=== PATIENT | female | born 1970 | race Caucasian/White ===

== ENCOUNTER 2024-05-02 10:40 | Emergency (ER) | payer OTHER, MEDICAID, SELFPAY ==
--- NOTE | ~2024-05-02 | XR_ITS ---
EXAMINATION: XR chest ET placement DATE: 05/02/2024 10:55 INDICATION: Intubation. TECHNIQUE: A single frontal view of the chest was obtained. COMPARISON: None. FINDINGS: There are airspace opacities in all lung zones bilaterally with relative sparing of right l casey apex. No pleural effusion or pneumothorax. The heart size is obscured. The endotracheal tube tip is at the level of the aleida. IMPRESSION: 1. Diffuse lung disease, consistent with pneumonia versus pulmonary edema. 2. Endotracheal tube tip at the level of the aleida. Retraction 2 cm is recommended. Reviewed, dictated and finalized at location A. IAC MONITOR TECHNICIAN IMPRESSION: 1. Diffuse lung disease, consistent with pneumonia versus pulmonary edema. 2. Endotracheal tube tip at the level of the aleida. Retraction 2 cm is recomme nded.
--- NOTE | 2024-05-02 10:37 | PC.NURSE ---
Pt arrives to ed room 4 via EMS @ 1038. Pt has josiane in place and going EDP Dr. Solis at bedside. Witnessed arrest at home, family heard pt fall to ground. No pulse felt by ems upon arrival and started CPR. ROSC obtained in field, 1035 lost pulse again. 3 epi given by ems prior to ROSC. Family reported that pt has had flu. Pt intubated with 7 ett 22 AT TEETH. IO in R tibia BS 403 for ems. Pulse check at 1040, carotid pulse felt - ROSC obtained.
[2024-05-02 10:44] VITALS: BP 78/58; PULSE 116; RESP 19
[2024-05-02 10:45] VITALS: PULSE 70
--- NOTE | 2024-05-02 10:53 | PC.NURSE ---
Pt HR dropped on monitorl, no pulse felt. CPR started.
--- NOTE | 2024-05-02 10:54 | PC.NURSE ---
Epi given at 1054. Pulse check @ 1056, femoral pulse felt, ROSC obtained. Post ROSC care continued.
--- NOTE | 2024-05-02 10:59 | PC.NURSE ---
OG placed at 1059, 52 at the teeth. Temp lester placed. Yellow urine output returned
[2024-05-02 11:01] VITALS: BP 64/42; PULSE 78; RESP 14; TEMP 34.8
--- NOTE | 2024-05-02 11:04 | PC.NURSE ---
Lost pulse @ 1104. CPR initiated.
--- NOTE | 2024-05-02 11:04 | PC.NURSE ---
Epi given @ 1104. Foundry Superintendant at bedside, VORB to give bicarb Bicarb given at 1105. Foundry Superintendant VORB to administer Calcium, calcium chloride administered at 1106. Pulse check at 1107, no pulse. CPR continued Epi given at 1107. Bicarb given at 1108. Pulses check at 1108 per MD, no pulse, CPR continued. Pulse check at 1110, no pulse, pt defibrillated at 1110. Pulse recheck, no pulse, CPR continued. Epi given at 1111. PEA at 1112, CPR continued. Bicarb given at 1113. Pulse check at 1113, pulse felt- cardiac rhythm showing afib, ROSC obtained. Pulse lost at 1116, CPR initiated, epi administered. Pulse check at 1118, PEA, CPR continued. Epi given at 1119. Pulse check at 1120, asystole, CPR continued. Per operating room rn, pulse check at 1121, no pulse, asystole, time of called at [address] Dwyer.
[2024-05-02 11:07] LABS: Hematocrit 36.1 % (37.0-47.0); Hemoglobin 10.3 g/dL (12.0-15.0); Mean Corpuscular HGB Conc 28.5 g/dl (32-36); Mean Corpuscular Volume 98.1 fl (80-100); Mean Platelet Volume 11.7 fl (7.4-10.4); Platelet Count Result 197 k/mm3 (150-375); Red Blood Count 3.68 M/mm3 (4.2-5.4); Red Cell Distribution Width 14.4 % (11.5-14.5); White Blood Count 21.9 K/mm3 (4.5-10.0)
--- NOTE | 2024-05-02 11:12 | PC.NURSE ---
hospitality tray ordered
[2024-05-02 11:19] LABS: INR 2.2; Prothrombin Time 25.4 Seconds (11.1-14.7)
[2024-05-02 11:20] LABS: Partial Thromboplastin Time 53.2 Seconds (22.3-36.8)
[2024-05-02 11:27] LABS: Albumin Level 2.4 g/dL (3.5-5.1); Alkaline Phosphatase 196 U/L (38-126); Anion Gap 28 mmol/L (4-12); Bilirubin,Total 0.9 mg/dL (0.2-1.3); Blood Urea Nitrogen 64 mg/dL (7-17); Calcium 9.1 mg/dL (8.4-10.2); Carbon Dioxide 10 mmol/L (22-30); Chloride 100 mmol/L (98-107); Estimated Glomerular Filt Rate 23; Glucose 313 mg/dL (65-110); Potassium 5.2 mmol/L (3.4-5.0); Sodium 138 mmol/L (137-145)
--- NOTE | 2024-05-02 11:35 | ED_ITS ---
HPI - General Adult General Chief complaint: Arrhythmia/Palpitations Stated complaint: ROSC Time Seen by Provider: 05/02/24 10:45 History of Present Illness HPI narrative: Patient is a 53-year-old female who presents ER after having a cardiac arrest. Patient collapsed at home. No bystander CPR. EMS arrived and began working the patient. The did have brief return of spontaneous circulation on the weighted ER with lost pulses again. Arrival patient had approximately 40 minutes down time that was broken up between the ROSC. Patient recently diagnosed with influenza. Patient intubated in the field. Copious secretions coming from the ET tube. EMS EKG without ST elevation. Related Data Allergies Allergy/AdvReac Type Severity Reaction Status Date / Time No Known Allergies Verified 12/28/09 22:47 Review of Systems 2 Review of Systems: ROS unobtainable: Yes unobtainable due to medical condition [facility] Past Medical History Medical History (Updated 05/02/24 @ 18:38 by Duc Billy MD) Medical history unknown Family History Family History (Updated 11/01/13 @ 07:13 by DOCTOR UNKNOWN) Mother Family history of thyroid disease Family history of malignant neoplasm of cervix Patient's mother is Grandparent Depression Hypertension Diabetes mellitus Father Hypertension Social History Social History Alcohol intake: never Exam 2 Narrative: GENERAL: Unresponsive, morbidly obese HEAD: Normocephalic, atraumatic. EYES: Pupils fixed and mid dilated. ENT: Mucous membranes moist. CHEST: No spontaneous respirations, coarse lung sounds with bagging. HEART: Pulseless. ABDOMEN: Soft, nondistended. EXTREMITIES: No deformity of the extremities. There is a tibial intraosseous line in the right leg. SKIN: Cool, dry, no rash. NEURO: GCS 3. Course Course Emergency Course: 1226: Patient with multiple rounds of CPR. Would intermittently have ROSC. Low blood pressures noted. X-ray with diffuse infiltrate. Suspect patient has severe sepsis and secondary bacterial pneumonia on top of her influenza, also has pulmonary edema and hepatic congestion which may be related to heart fialure. ET tube was at the aleida and was withdrawn 1.5 cm prior to radiology reading imaged. I was in another room resuscitating a separate code blue when patient coded again. ACLS protocol followed. Dr. Dwyer the ICU physician came to the patient's bedside to assist in care. Patient pronounced as at 11:21 a.m.. She does not have a PCP. The coronal come out to evaluate the body. Vital Signs Vital signs: Vital Signs Pulse Rate 116 H 05/02/24 10:44 Respiratory Rate 19 05/02/24 10:44 Blood Pressure 78/58 L 05/02/24 10:44 Temperature 94.7 F L 05/02/24 11:01 Pulse Rate 78 05/02/24 11:01 Respiratory Rate 14 05/02/24 11:01 Blood Pressure 64/42 L 05/02/24 11:01 Oxygen Delivery Mechanical Ventilation 05/02/24 10:45 Fraction of Inspired Oxygen 100 05/02/24 10:45 Medical Decision Making Vital Signs Vital Signs: Vital Signs Pulse Rate 116 H 05/02/24 10:44 Respiratory Rate 19 05/02/24 10:44 Blood Pressure 78/58 L 05/02/24 10:44 Temperature 94.7 F L 05/02/24 11:01 Pulse Rate 78 05/02/24 11:01 Respiratory Rate 14 05/02/24 11:01 Blood Pressure 64/42 L 05/02/24 11:01 Oxygen Delivery Mechanical Ventilation 05/02/24 10:45 Fraction of Inspired Oxygen 100 05/02/24 10:45 Lab Data 05/02/24 10:57 05/02/24 10:57 Labs: Lab Results 05/02/24 05/02/24 05/02/24 Range/Units 10:53 10:57 11:03 WBC 21.9 H (4.5-10.0) K/mm3 RBC 3.68 L (4.2-5.4) M/mm3 Hgb 10.3 L (12.0-15.0) g/dL Hct 36.1 L (37.0-47.0) % MCV 98.1 (80-100) fl MCH 28.0 (26-34) pg MCHC 28.5 L (32-36) g/dl RDW 14.4 (11.5-14.5) % Plt Count 197 (150-375) k/mm3 MPV 11.7 H (7.4-10.4) fl Immature Gran % (Auto) Not Reportable Neut % (Auto) Not Reportable Lymph % (Auto) Not Reportable [place] % (Auto) Not Reportable Eos % (Auto) Not Reportable Baso % (Auto) Not Reportable Lymph # (Auto) Not Reportable [place] # (Auto) Not Reportable Eos # (Auto) Not Reportable Baso # (Auto) Not Reportable Abs Immat Gran (auto) Not Reportable Absolute Neuts (auto) Not Reportable Absolute Nucleated RBC Not Reportable Total Counted 100 Neutrophils % (Manual) 48 (46-73) % Band Neutrophils % 15 H (0-6) % Lymphocytes % (Manual) 30 (18-44) % Monocytes % (Manual) 5 (3-9) % Eosinophils % (Manual) 1 (0-4) % Nucleated RBC % Not Reportable Abs Neuts (Manual) 13.79 H (1.7-7.2) K/mm3 Abs Lymphs (Manual) 6.57 H (1.1-4.5) K/mm3 Abs Monocytes (Manual) 1.09 H (0.1-0.90) K/mm3 Absolute Eos (Manual) 0.21 (0.02-0.50) K/mm3 Nucleated RBCs 1 % Platelet Estimate Adequate (Adequate) Schistocytes None seen PT 25.4 H (11.1-14.7) Seconds INR 2.2 APTT 53.2 H (22.3-36.8) Seconds Sodium 138 (137-145) mmol/L Potassium 5.2 H (3.4-5.0) mmol/L Chloride 100 (98-107) mmol/L Carbon Dioxide 10 L (22-30) mmol/L Anion Gap 28 H (4-12) mmol/L BUN 64 H (7-17) mg/dL Creatinine 2.23 H (0.7-1.0) mg/dL Estim Creat Clear Calc Not Reportable Estimated GFR 23 L (59 - ) Glucose 313 H (65-110) mg/dL Lactic Acid 16.5 H* (0.7-2.0) mmol/L Calcium 9.1 (8.4-10.2) mg/dL Total Bilirubin 0.9 (0.2-1.3) mg/dL AST 2733 H (14-36) U/L ALT 776 H (6-35) U/L Alkaline Phosphatase 196 H (38-126) U/L Troponin I 0.112 H* (0.000-0.034) ng/mL C-Reactive Protein 39.0 H (<1.0) mg/dL NT-Pro-B Natriuret Pep 3250 H (19.9-100) pg/mL Total Protein 6.0 L (6.3-8.2) g/dL Albumin 2.4 L (3.5-5.1) g/dL Urine Color Yellow (Yellow) Urine Appearance Turbid H (Clear) Urine pH 5.0 (5.0-9.0) Ur Specific [place] 1.016 (1.001-1.035) Urine Protein 1+ H (Negative) mg/dL Urine Glucose (UA) 1+ H (Negative) mg/dL Urine Ketones Negative (Negative) mg/dL Ur Blood (Man) 1+ H (Negative) Urine Nitrate Negative (Negative) Urine Bilirubin Negative (Negative) Urine Urobilinogen 1.0 (<2.0) mg/dL Leukocyte Esterase Rfl Negative (Negative) JAMIE/UL Urine RBC 6-10 H (0-2) /hpf Urine WBC 6-10 H (0-3) /hpf Ur Squamous Epith Cells Many H (Few) /hpf Amorphous Sediment Moderate H (None) Urine Bacteria None seen /hpf Urine Casts >20 Urine Mucus Present /lpf Influenza A (RT-PCR) Negative (Negative) Influenza B (RT-PCR) Negative (Negative) SARS-CoV-2 RNA (RT-PCR) Negative (Negative) Imaging Data Radiologist's impression: ITS Impressions Chest X-Ray 05/02/24 10:58 IMPRESSION: 1. Diffuse lung disease, consistent with pneumonia versus pulmonary edema. 2. Endotracheal tube tip at the level of the aleida. Retraction 2 cm is recommended. Discharge Plan Discharge Clinical Impression: Cardiopulmonary arrest, Pneumonia, Hepatic congestion Patient Disposition: Condition: Patient Language: Rwandan Follow-up/Referrals: UNKNOWN,DOCTOR [Primary Care Provider] -
[2024-05-02 11:48] LABS: NT Pro B Type Natriuretic Pept 3250 pg/mL (19.9-100); Troponin I 0.112 ng/mL (0.000-0.034)
[2024-05-02 11:49] LABS: Band Neutrophils Percent 15 % (0-6); Eosinophils Absolute Manual 0.21 K/mm3 (0.02-0.50); Neutrophils Absolute Manual 13.79 K/mm3 (1.7-7.2); Neutrophils Percent Manual 48 % (46-73); Nucleated Red Blood Cells 1 %; Total Cells Counted 100
[2024-05-02 11:50] LABS: Eosinophils Percent Manual 1 % (0-4); Lymphocytes Absolute Manual 6.57 K/mm3 (1.1-4.5); Lymphocytes Percent Manual 30 % (18-44); Monocytes Absolute Manual 1.09 K/mm3 (0.1-0.90); Monocytes Percent Manual 5 % (3-9); Platelet Estimate Adequate (Adequate); Schistocytes None Seen
[2024-05-02 12:09] LABS: Add Urine Microscopic? YES; Appearance Urine Turbid (Clear); Bacteria Urine None Seen /hpf; Bilirubin Urine Negative (Negative); Blood Urine 1+ (Negative); Color Urine Yellow (Yellow); Glucose Urine UA 1+ mg/dL (Negative); Ketones Urine Negative (Negative); Leukocyte Esterase Ur Negative LEU/UL (Negative); Mucus Urine Present /lpf; Nitrate Urine Negative (Negative); Non Pathogenic Casts >20; Protein Urine 1+ mg/dL (Negative); Specific Grav Ur 1.016 (1.001-1.035); Squamous Epithelial Cell Urine Many /hpf (Few)
[2024-05-02 12:12] LABS: Amorphous Sediment Urine Moderate
[2024-05-02 12:16] LABS: Lactic Acid Reflex 16.5 mmol/L (0.7-2.0)
[2024-05-02 12:16] LABS: Alanine Aminotransferase 776 U/L (6-35)
[2024-05-02 12:40] LABS: Influenza A QL RT-PCR Negative (Negative); Influenza B QL RT-PCR Negative (Negative); SARS-CoV-2 RNA PCR Negative (Negative)
--- OUTSIDE RECORDS SUMMARY | 2024-05-02 12:47 | XMS_ITS | Continuity of Care Document ---
Author Organization [facility] Address [address] [place] [address] Phone Care Team Providers Care Color Developer Name Role Phone Unavailable Unavailable Unavailable Advance Directives Directive Yes / No Effective Date File Name No Information Encounters Encounter Description Practice Location Reason(s) For Visit Diagnoses Date Provider Providers Copied on Encounter [facility], [address] [facility], [place], [place], [id number], [place] tel:[phone] [facility] No Information May-0 3-201 3 No Information Referring Provider: ELEAZAR Heaton, [address], [place], [address]. tel:[phone] Family History Family Member Type Diagnosis Age At Onset No Information Payers Payer name Insurance type Covered alliance party ID Authorlenkaa em(s) [facility] IN[facility]MN[facility] [id number] Social History Type Description Quantity Date Captured Comments Sex Female Smoking Status No Information Chief Complaint And Reason For Visit No Information History Of Present Illness Encounter Date Complaint History Of Prese nt Illness No Information Instructions Date Instruction Additional Infor mation No Information Assessments Type Assessment Date No Information
--- OUTSIDE RECORDS SUMMARY | 2024-05-02 12:47 | XMS_ITS | Clinical Summary ---
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 Gender Identity Not on file Sexual Orientation Not on file Last Filed Vital Signs Vital Sign Reading Time Taken Comments Blood Pressure 107/57 01/04/2012 11:06 AM CDT Pulse 64 01/04/2012 11:06 AM CDT Temperature - - Respiratory Rate - - Oxygen Saturation - - Inhaled Oxygen Concentration - - Weight 86.2 kg (190 lb) 01/04/2012 11:06 AM CDT Height - - Body Mass Index - - Plan of Treatment Health Maintenance Due Date Last Done Comments DTAP/TDAP/TD VACCINES (1 - Tdap) 07/05/1990 HEPATITIS B VACCINES (1 of 3 - 19+ 3-dose series) 07/05/1990 CERVICAL CANCER SCREENING 07/05/2001 BREAST CANCER SCREENING 2011 COLORECTAL SCREENING 07/05/2016 Colorectal Cancer Screening 07/05/2016 FIT-DNA Q 3 years 07/05/2016 FIT/FOBT Q 1 year 07/05/2016 Flex Sig/CT Colonography Q 5 years 07/05/2016 ZOSTER VACCINE (1 of 2) 07/05/2021 INFLUENZA VACCINE (#1) 2023 PNEUMOCOCCAL VACCINE 0-64 YEARS Aged Out No longer eligible based on patient's age to complete this topic Insurance PUBLIC AID
[2024-05-02 13:10] LABS: Aspartate Amino Transferase 2733 U/L (14-36)
[2024-05-02 14:08] LABS: Reflex Lactic Acid Yes or No Add Lactic
== END 2024-05-02 11:21 | disposition expired ==
PROVIDERS: Emergency Provider Emergency Medicine
DX: I46.9 Cardiac arrest, cause unspecified (principal); J18.9 Pneumonia, unspecified organism; K76.1 Chronic passive congestion of liver; J11.1 Influenza due to unidentified influenza virus with other respiratory manifestations; Z20.822 Contact with and (suspected) exposure to COVID-19
CPT/HCPCS: 36415; 36600; 80053; 81001; 83605; 83880; 84484; 85025; 85610; 85730; 86140; 87636; 92950; 94002; 96374; 96375; 99285; J0171; J7060